=== PATIENT | female | born 1940 | race Asian ===

== ENCOUNTER 2025-05-14 11:41 | Inpatient (IN) | payer MEDICARE, OTHER ==
[~2025-05-14] VITALS: Ht 154.9 cm; Wt 55.9 kg
[2025-05-14] MEDS ORDERED: IOHEXOL 350 MG/ML 100 ML VIAL ONE (12:11)
[2025-05-14] MEDS ORDERED: SODIUM CHLORIDE 0.9% 100 ML ONE (12:11)
[2025-05-14] MEDS: MORPHINE SULFATE 2 MG/ML SYRINGE IVP ONE (12:13)
[2025-05-14] MEDS: METOCLOPRAMIDE HCL 5 MG/ML 2 ML VIAL IVP ONE (12:15)
[2025-05-14 12:19] LABS: PLATELET COUNT (AUTO) 183 K/uL (150-450); RED BLOOD CELL COUNT(AUTO) 4.92 MIL/uL (4.00-5.20); RED CELL DISTRIBUTION WIDTH 15.0 % (11.5-14.5); WHITE BLOOD COUNT (AUTO) 5.9 K/uL (4.5-11.0)
[2025-05-14] MEDS: MECLIZINE HCL 25 MG TABLET PO ONE (12:47)
[2025-05-14 13:01] LABS: CALCIUM, TOTAL 9.1 mg/dL (8.8-10.5); CREATININE 0.86 mg/dL (0.60-1.30); GLOMERULAR FILTR. RATE CALC > 60 mL/min (>60); GLUCOSE,RANDOM 191 mg/dL (70-110); SODIUM SERUM 139 mmol/L (136-145); UREA NITROGEN, BLOOD 21 mg/dL (7-18)
[2025-05-14] MEDS ORDERED: antihypertensive PO (13:01)
[2025-05-14] MEDS ORDERED: cholesterol med PO (13:01)
[2025-05-14 13:05] LABS: ASPARTATE AMINOTRANSFERASE 21 U/L (15-37); TOTAL PROTEIN, SERUM 7.7 g/dL (6.4-8.2)
[2025-05-14 13:08] LABS: TROPONIN I-HIGH SENSITIVITY 8 ng/L (<51)
[2025-05-14 13:16] LABS: APPEARANCE,URINE CLEAR (CLEAR); GLUCOSE, URINE (UA) 150-200 mg/dL (NEGATIVE); LEUKOCYTE ESTERASE ,URINE NEGATIVE (NEGATIVE); NITRATE,URINE NEGATIVE (NEGATIVE); OCCULT BLOOD,URINE NEGATIVE (NEGATIVE); PH,URINE DRUG SCREEN 8.0 (5.0-8.0); SPECIFIC GRAVITIY, URINE 1.030 (1.003-1.030)
[2025-05-14 13:34] LABS: ALCOHOL, URINE DRUG SCREEN NEGATIVE (NEGATIVE); AMPHET/METH SCREEN,URINE NEGATIVE (NEGATIVE); BARBITURATE SCREEN, URINE NEGATIVE (NEGATIVE); CANNABINOID SCREEN,URINE NEGATIVE (NEGATIVE); COCAINE SCREEN,URINE NEGATIVE (NEGATIVE); METHADONE SCREEN, URINE NEGATIVE (NEGATIVE)
[2025-05-14 15:35] VITALS: BP 141/70; PULSE 81; RESP 19; TEMP 98.1; O2SAT 97
[2025-05-14] MEDS ORDERED: BISACODYL 10 MG RECTAL RECTAL SUPPOSITORY PR PRN (15:45)
[2025-05-14] MEDS ORDERED: ZOLPIDEM TARTRATE 5 MG TABLET PO PRN (15:45)
[2025-05-14] MEDS ORDERED: HYDROCODONE/ACETAMINOPHEN 5-325 MG TABLET PO PRN (15:45)
[2025-05-14] MEDS ORDERED: MAGNESIUM HYDROXIDE SUSPENSION 30 ML UDCUP PO PRN (15:45)
[2025-05-14] MEDS ORDERED: MORPHINE SULFATE 4 MG/ML SYRINGE IVP PRN (15:45)
[2025-05-14] MEDS ORDERED: POTASSIUM CHL 10 MEQ/WATER 50 ML IV PRN (16:15)
[2025-05-14] MEDS: ONDANSETRON HCL 4 MG/2 ML VIAL IVP PRN (16:32)
[2025-05-14] MEDS: POTASSIUM CHLORIDE 20 MEQ ER TABLET PO PRN (16:33)
[2025-05-14] MEDS: HEPARIN SODIUM,PORCINE 5,000 UNITS/ML VIAL SQ SCH (16:33)
[2025-05-14 17:34] LABS: TROPONIN I-HIGH SENSITIVITY 14 ng/L (<51)
[2025-05-14] MEDS: DOCUSATE SODIUM 100 MG CAPSULE PO SCH (19:38)
[2025-05-14 19:56] VITALS: BP 142/64; PULSE 67; RESP 18; TEMP 98.6; O2SAT 97
[2025-05-14 23:52] VITALS: BP 133/67; PULSE 69; RESP 17; TEMP 98.6; O2SAT 96
[2025-05-15 01:05] LABS: TROPONIN I-HIGH SENSITIVITY 14 ng/L (<51)
[2025-05-15 03:51] VITALS: BP 146/68; PULSE 76; RESP 18; TEMP 98.4; O2SAT 98
[2025-05-15 05:53] LABS: PLATELET COUNT (AUTO) 160 K/uL (150-450); RED BLOOD CELL COUNT(AUTO) 4.72 MIL/uL (4.00-5.20); RED CELL DISTRIBUTION WIDTH 14.8 % (11.5-14.5); WHITE BLOOD COUNT (AUTO) 6.4 K/uL (4.5-11.0)
[2025-05-15 06:01] LABS: CALCIUM, TOTAL 8.8 mg/dL (8.8-10.5); CREATININE 0.63 mg/dL (0.60-1.30); GLOMERULAR FILTR. RATE CALC > 60 mL/min (>60); GLUCOSE,RANDOM 110 mg/dL (70-110); SODIUM SERUM 143 mmol/L (136-145); UREA NITROGEN, BLOOD 13 mg/dL (7-18)
[2025-05-15 07:23] VITALS: BP 119/61; PULSE 79; RESP 18; TEMP 98.4; O2SAT 96
[2025-05-15] MEDS: PANTOPRAZOLE SODIUM 40 MG DR TABLET PO SCH (08:49)
[2025-05-15 11:44] VITALS: BP 112/70; PULSE 76; RESP 18; TEMP 98.1; O2SAT 98
[2025-05-15] MEDS ORDERED: MECLIZINE HCL 12.5 MG TABLET PO PRN (11:45)
[2025-05-15 15:39] VITALS: BP 162/75; PULSE 79; RESP 18; TEMP 98; O2SAT 97
[2025-05-15 20:00] VITALS: BP 127/57; PULSE 85; RESP 18; TEMP 98.4; O2SAT 97
[2025-05-15] MEDS: ACETAMINOPHEN 325 MG TABLET PO PRN (20:13)
[2025-05-16] VITALS: BP 121/66; PULSE 67; RESP 18; TEMP 98.2; O2SAT 98
[2025-05-16 04:00] VITALS: BP 135/98; PULSE 65; RESP 18; TEMP 98.1; O2SAT 97
[2025-05-16 06:11] LABS: PLATELET COUNT (AUTO) 175 K/uL (150-450); RED BLOOD CELL COUNT(AUTO) 4.88 MIL/uL (4.00-5.20); RED CELL DISTRIBUTION WIDTH 15.0 % (11.5-14.5); WHITE BLOOD COUNT (AUTO) 4.4 K/uL (4.5-11.0)
[2025-05-16 06:28] LABS: CALCIUM, TOTAL 9.1 mg/dL (8.8-10.5); CREATININE 0.57 mg/dL (0.60-1.30); GLOMERULAR FILTR. RATE CALC > 60 mL/min (>60); GLUCOSE,RANDOM 103 mg/dL (70-110); SODIUM SERUM 139 mmol/L (136-145); UREA NITROGEN, BLOOD 13 mg/dL (7-18)
[2025-05-16 08:56] VITALS: BP 121/71; PULSE 74; RESP 18; TEMP 98.4; O2SAT 97
[2025-05-16] MEDS ORDERED: AMLO-257 PO (11:19)
[2025-05-16 12:19] VITALS: BP 136/71; PULSE 75; RESP 18; TEMP 98.2; O2SAT 98
[2025-05-16] MEDS: MECLIZINE HCL 12.5 MG TABLET PO PRN (14:20)
== END 2025-05-16 15:30 | disposition home or self-care (01) | DRG 74 ==
LOC: EMS 11:42 → EDH 14:43 → 5N 15:28
PROVIDERS: ADMIT Internal Medicine; ATTEND Internal Medicine
DX: G90.89 Other disorders of autonomic nervous system (principal); E78.5 Hyperlipidemia, unspecified; I10 Essential (primary) hypertension; E87.6 Hypokalemia; Z79.899 Other long term (current) drug therapy
CPT/HCPCS: 70496; 70498; 71045; 80048; 80053; 80307; 81001; 82948; 83735; 84132; 84484; 85025; 85610; 85730; 86850; 86900; 86901; 92526; 92610; 93005; 96374; 96375; 97116; 97162; 99291; G0480; J1200; J1644; J2270; J2405; J2765; J7050; 36415-L1; 36415-TC; 70450; 70450-TC